=== PATIENT | male | born 1935 ===

== ENCOUNTER 2023-10-04 09:45 | Outpatient (OUT) | payer MEDICARE, BC, SELFPAY ==
--- NOTE | 2023-10-04 09:58 | XR_ITS ---
The [address] [address] Patient Name: JB ROBLES MRN: [id number] date: 1935 Sex: M Assigned Patient Location: SURGOUT Current Patient Location: [facility] Accession/Order Number: [id number] Exam Date: 10/04/2023 10:50 Report Date: 10/04/2023 12:09 At the request of: ESTEFANÍA AGUILAR Procedure: XR chest 2V EXAM: XR chest 2V HISTORY: Preop exam COMPARISON: None. TECHNIQUE: PA and lateral views of the chest. FINDINGS: The cardiomediastinal silhouette is normal. No focal consolidation is identified. There is no pneumothorax. No pleural effusion is noted. The osseous structures are intact. XR/XR chest 2V IMPRESSION: No acute cardiopulmonary process. Electronically authenticated by: KERVIN MOE Date: 10/04/2023 12:09
--- NOTE | 2023-10-04 09:58 | ECG_ITS ---
The [facility] Test Date: 2023-10-04 Pat Name: JB ROBLES Department: Room: - Gender: Male Locate Technician: : 1935 Requested By: [id number] Order Number: [id number] Reading MD: ARGELIA CAMPBELL Measurements Intervals [place] Rate: 49 P: [place]: QRS: 29 QRSD: 104 T: -34 QT: 396 QTc: 360 Interpretive Statements ATRIAL FIBRILLATION WITH SLOW VENTRICULAR RESPONSE MODERATE ST DEPRESSION [0.05+ mV ST DEPRESSION] ABNORMAL QRS-T ANGLE [QRS-T AXIS DIFFERENCE > 60] No previous ECG available for comparison Electronically Signed On 10-05-2023 6:38:20 EST by ARGELIA CAMPBELL
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
[2023-10-04 11:05] LABS: Basophils Absolute Auto 0.1 10^3/uL (0.0-0.1); Basophils Percent Auto 0.8 % (0.2-2.0); Eosinophils Absolute Auto 0.1 10^3/uL (0.0-0.7); Eosinophils Percent Auto 0.8 % (0.9-7.0); Hematocrit 45.8 % (42.0-54.0); Hemoglobin 14.9 g/dL (14.0-18.0); Immature Granulocytes Abs Auto 0.09 10^3/uL (0.00-0.03); Immature Granulocytes Pct Auto 1.1 % (0.0-0.5); Lymphocytes Absolute Auto 1.3 10^3/uL (1.2-3.8); Lymphocytes Percent Auto 14.8 % (20.5-60.0); Mean Corpuscular HGB Conc 32.5 g/dL (29.9-35.2); Mean Corpuscular Volume 89.3 fL (80.0-94.0); Mean Platelet Volume 11.1 fL (9.5-13.5); Monocytes Absolute Auto 0.9 10^3/uL (0.3-0.8); Monocytes Percent Auto 10.2 % (1.7-12.0); Neutrophils Absolute Auto 6.2 10^3/uL (1.4-6.5); Neutrophils Percent Auto 72.3 % (43.0-75.0); Platelet Count 187 10^3/uL (150-450); Red Blood Count 5.13 10^6/uL (4.70-6.10); Red Cell Distribution Width 14.6 % (11.0-15.0); White Blood Count 8.5 10^3/uL (4.0-11.0)
[2023-10-04 11:19] LABS: INR 1.02; Prothrombin Time 10.8 sec (9.0-11.6)
[2023-10-04 11:20] LABS: Anion Gap 9.8; BUN Creatinine Ratio 17.4; Calcium 8.7 mg/dL (8.5-10.1); Carbon Dioxide 30.6 mmol/L (21.0-32.0); Chloride 107 mmol/L (98-107); Estimated GFR (African America 54 (>=60); Estimated GFR (Non-African Ame 44 (>=60); Glucose 107 mg/dL (74-106); Potassium 4.4 mmol/L (3.5-5.1); Sodium 143 mmol/L (136-145)
[2023-10-04 11:30] LABS: Digoxin 0.6 ng/mL (0.9-2.0)
== END 2023-10-04 09:46 | disposition home or self-care (01) ==
LOC: PST 09:47
PROVIDERS: Visit Provider Urology
DX: Z01.810 Encounter for preprocedural cardiovascular examination (principal); Z01.812 Encounter for preprocedural laboratory examination; Z01.818 Encounter for other preprocedural examination; N20.1 Calculus of ureter; N20.0 Calculus of kidney
CPT/HCPCS: 36415; 71046; 80048; 80162; 85025; 85610; 85730; 93005; G0463

== ENCOUNTER 2023-10-13 11:58 | Day surgery (SDC) | payer MEDICARE, BC, SELFPAY ==
[2023-10-04 10:42] VITALS: BP 144/74; PULSE 64; RESP 18; TEMP 36.2; O2SAT 96; BMI 33.8
[2023-10-13] VITALS (14 sets, daily range): BP systolic 97–142; BP diastolic 51–66; PULSE 47–67; RESP 12–18; TEMP 36.2–36.3; O2SAT 94–99
[2023-10-13] MEDS: LACTATED RINGER'S SOLUTION 1,000 ML 50 ML IV (12:42)
[2023-10-13] MEDS: CEFAZOLIN SODIUM/DEXTROSE,ISO 2 GM/50 ML PIGGYBACK IV (13:39)
[2023-10-13] MEDS: IOHEXOL 240 MG/ML - 50 ML VIAL 100 MG INJ (15:08)
--- NOTE | 2023-10-13 16:00 | P.URON_ITS ---
Urology Surgery Operative Note Operative Note Procedure Date: 10/13/23 Time Out Performed: yes Pre-op Diagnosis: 1. Left mid ureteral stone with hydronephrosis 2. Left kidney stones Post-op Diagnosis: other (1. Left mid ureteral stones with hydronephrosis, 2. Left kidney stones, 3. Left ureteral stricture) Procedures performed: 1. Cystoscopy, left retrograde pyelogram, ureteroscopy laser lithotripsy/stone extraction of ureteral stones, stent placement 2. Left renoscopy with laser lithotripsy/stone extraction of kidney stones 3. Left ureteral balloon dilation Anesthesia: General-LMA (Dr. Worthington) Primary Surgeon: Sheyla Aceves Complications: none Estimated blood loss (mL): 0 Findings: -Severe trilobar prostatic hyperplasia with severe global mass effect into bladder. Distorted L UO placement (more lateral on edge of prostate). 2+ trabeculated bladder. -Radiopaque left mid and left kidney stones. -L RPG: Severe J hooking of left distal ureter, decompressed to mid ureteral filling defect consistent with known stone, moderately dilated proximal hydroureteronephrosis -4-5 left mid ureteral stones piled proximal to ~ 8 Fr dense, pale ureteral stricture. Stones were laser lithotripsied and basket extracted. Moderate- severely dilated ureter proximal to stricture. 6 mm left upper posterior pole stone laser litho/basket extracted, additional 3 stones ~3-4 mm each basket extracted throughout calyces. -15Fr x 4 cm balloon dilation of left mid ureteral stricture, widely patent at end of case. Specimens: left ureteral and kidney stones Drains: 7Fr x 22-32 cm JJ left ureteral stent Incision: none Indications for Procedures: 88 year old male prior Dr. Barone patient who was evaluated in clinic and noted to have a 7x7mm left mid ureteral stone without hydronephrosis since 10/2021. Updated CT scan shows persistence of an 8 mm left mid ureteral stone, mild left hydronephrosis and additional non-obstructing left stones up to 4.5 mm. After discussion of risks/benefits of management options, he elected to proceed with cystoscopy, left retrograde pyelogram, ureteroscopy with laser lithotripsy/stone extraction, ureteral stent placement under general anesthesia. Risks were discussed including but not limited to bleeding, pain, infection, damage to surrounding structures, inability to treat the stone/place a stent, and need for additional procedures. Increased risk of ureteral stricture was discussed given stone has been present for almost 2 years. The patient understands the stent is not permanent and needs to be removed or exchanged within 3 months to prevent encrustation, infection, invasive procedures and/or permanent renal damage. Detailed description of Procedure: After informed consent was obtained, the patient was brought to the operating room and transferred onto the operating table in supine position. Sequential compression devices were placed on bilateral lower extremities. The patient received the appropriate dose of preoperative IV antibiotics and general anesthesia LMA was induced. They were positioned in modified dorsolithotomy with the appropriate pressure points padded, prepped, and draped in the usual sterile fashion for this procedure. An operative safety timeout was performed confirming the patient's identity, laterality and procedure, and all present agreed to proceed. I began by inserting a 22 Croatian rigid cystoscope with 30 degree lens into the patient's urethra and bladder without difficulty. There were no bladder tumors, lesions, stones or foreign bodies. Left ureteral orifice was laterally displaced and remained on the intravesical prostate. The right UO appeared medialized. I turned my attention to the left ureteral orifice and a 6- Croatian open-ended catheter was inserted into the ureteral orifice and dilute contrast was injected for retrograde pyelogram with findings as above. A Sensor wire was inserted into the ureter up to the renal pelvis confirmed on fluoroscopy. A 10/12 Croatian by 36 cm ureteral access sheath was inserted over the wire in a sequential fashion to gain access to the ureteral stone. Next a flexible ureteroscope was inserted through the sheath and advanced to the ureter under fluoroscopic guidance until the stone was reached. A 270 ?m Thulium YAG laser fiber was used to break the stone into fragments which were then removed with a 1.8 tipless nitinol basket. After the stone was adequately treated, a full renoscopy was performed to remove the kidney stones. The larger stone was laser lithotripsied and basket extracted. After all stones were treated, contrast was injected to assist with mapping for the renoscopy and ensure no significant fragments remained. The wire was reinserted and a pull down ureteroscopy was performed confirming no stones remained in the ureter. Laser incision of mid ureteral stricture did not appear to be effective. A 15Fr x 4 cm ureteral balloon dilator was advanced over the wire to the level of the stricture and dilated under fluoroscopic guidance. Repeat ureteroscopy confirmed widely patent prior strictured area. The wire was backloaded through the cystoscope and 7Fr x 22-32cm JJ variable length ureteral stent was advanced over the wire, noting adequate curl in the renal pelvis and bladder on fluoroscopic and direct visualization. The bladder was drained and inspected one final time to ensure adequate position of stent and no undue trauma to the bladder was done. The stones were sent for pathology and the cystoscope was removed. The patient tolerated the procedure well without complication. The patient was awakened from anesthesia and sent to PACU in stable condition. Plan: Discharge home with stent pain medications. Follow up in 3 weeks for in- office cystoscopy, stent removal given dilation of stricture and ureteral stone present x 2 years. Obtain renal US at least 6 wks post stent removal to ensure silent obstruction does not develop given high risk of stricture recurrence. This was thoroughly discussed with pt and family. Other Provider present: No Post Operative care instructions: See discharge instructions Attending Doc Confirm Attending Attestation: Yes
[2023-10-21 21:07] LABS: Calcium Oxalate Dihydrate 10 % (.); Calcium Oxalate Monohydrate 90 % (.); Size 4x3 mm (.)
== END 2023-10-13 17:00 | disposition home or self-care (01) ==
PROVIDERS: Visit Provider Urology
PROC: (CPT 52341; principal; 2023-10-13 13:20)
DX: N13.2 Hydronephrosis with renal and ureteral calculous obstruction (principal); Z79.01 Long term (current) use of anticoagulants; I48.91 Unspecified atrial fibrillation; I25.10 Atherosclerotic heart disease of native coronary artery without angina pectoris; I12.9 Hypertensive chronic kidney disease with stage 1 through stage 4 chronic kidney disease, or unspecified chronic kidney disease; Q62.10 Congenital occlusion of ureter, unspecified; N32.89 Other specified disorders of bladder; H91.90 Unspecified hearing loss, unspecified ear; Z86.16 Personal history of COVID-19; M19.90 Unspecified osteoarthritis, unspecified site; G47.00 Insomnia, unspecified; K21.9 Gastro-esophageal reflux disease without esophagitis; I25.2 Old myocardial infarction; Z90.49 Acquired absence of other specified parts of digestive tract; Z87.891 Personal history of nicotine dependence; N40.1 Benign prostatic hyperplasia with lower urinary tract symptoms; N18.2 Chronic kidney disease, stage 2 (mild); R31.29 Other microscopic hematuria; E78.2 Mixed hyperlipidemia; I48.0 Paroxysmal atrial fibrillation
CPT/HCPCS: 52341; 52356; 36415; 74420; 82365; 99999; J0131; J0690; J2405; J2704; J3010; Q9966